=== PATIENT | female | born 1980 | race African-American/Black ===

== ENCOUNTER 2017-03-15 14:58 | Emergency (ER) | payer MEDICARE ==
[2017-03-15] MEDS ORDERED: Ibuprofen 200 MG TAB ONE (17:13)
[2017-03-15] MEDS ORDERED: Acetaminophen 500 MG TAB ONE (17:13)
--- NOTE | 2017-03-15 18:55 | RAD ---
PELVIS ONE VIEW: History: 37-year-old female with history of pelvic injury following a fall. FINDINGS: Compression screws stabilize right femoral fracture with some prominent associated mild sinus ossific ans. No evidence for acute pelvic fracture or hip fracture. IMPRESSION: Old right femoral fracture stabilized with compression screws with prominent mild sinus os ossificans . No acute fracture. POS: [facility]
--- NOTE | 2017-03-15 19:01 | RAD ---
RIGHT FEMUR TWO VIEWS: History: 37-year-old female with history of right hip and thigh injury following a fall off a couch. FINDINGS: Compression screw device stabilizes a right femoral and intratrochanteric fracture with some fairly p rominent sinus ossificans. No evidence for acute periprosthetic fracture, dislocation, or other acute process. IMPRESSION: Compression screw device stabilizing intertrochanteric fracture right hip. Prominent sinus ossificans . No acute fracture. POS: [facility]
== END 2017-03-15 18:58 | disposition home or self-care (01) ==
LOC: ERS 14:58
DX: S70.11XA Contusion of right thigh, initial encounter (principal); E03.9 Hypothyroidism, unspecified; K21.9 Gastro-esophageal reflux disease without esophagitis; I10 Essential (primary) hypertension; G40.909 Epilepsy, unspecified, not intractable, without status epilepticus; Z79.899 Other long term (current) drug therapy; W08.XXXA Fall from other furniture, initial encounter
CPT/HCPCS: 72170

== ENCOUNTER 2018-02-19 21:30 | Emergency (ER) | payer MEDICARE, MEDICAID ==
--- NOTE | 2018-02-19 22:39 | RAD ---
THREE VIEWS OF THE RIGHT FOOT: 02/19/18 COMPARISON: None. HISTORY: Right foot pain after the foot was rolled over by a wheelchair today. FINDINGS: Three views of the right foot shows a fracture of the base of the proximal phalanx of the great toe w hich is intra-articular and involving approximately 20% of the joint space. Mild soft tissue swelling is seen. No dislocation is present. IMPRESSION: Great toe proximal phalanx fracture. POS: [facility]
== END 2018-02-19 23:20 | disposition home or self-care (01) ==
LOC: SCSER 21:30
DX: S92.411A Displaced fracture of proximal phalanx of right great toe, initial encounter for closed fracture (principal); E03.9 Hypothyroidism, unspecified; F43.10 Post-traumatic stress disorder, unspecified; K21.9 Gastro-esophageal reflux disease without esophagitis; F32.9 Major depressive disorder, single episode, unspecified; G80.9 Cerebral palsy, unspecified; Z79.899 Other long term (current) drug therapy; W22.8XXA Striking against or struck by other objects, initial encounter

== ENCOUNTER 2019-02-07 14:44 | Emergency (ER) | payer MEDICARE, MEDICAID ==
[2019-02-07] MEDS ORDERED: Acetaminophen 500 MG TAB ONE (14:58)
--- NOTE | 2019-02-07 15:37 | CT ---
HEAD CT NONCONTRAST: Indication: Fall FINDINGS: No evidence of ventriculomegaly, mass effect, midline shift or acute intracranial hemorrhage. Calvari um is intact. No fluid level of the paranasal sinuses. Multiple dystrophic, dural based calcification s are seen. IMPRESSION: No acute intracranial abnormalities. POS: [facility]
== END 2019-02-07 15:33 | disposition home or self-care (01) ==
LOC: SCSER 14:44
DX: S00.03XA Contusion of scalp, initial encounter (principal); E03.9 Hypothyroidism, unspecified; F32.9 Major depressive disorder, single episode, unspecified; F43.10 Post-traumatic stress disorder, unspecified; Z79.899 Other long term (current) drug therapy; W18.30XA Fall on same level, unspecified, initial encounter
CPT/HCPCS: 70450

== ENCOUNTER 2019-11-17 11:45 | Outpatient (CLI) | payer MEDICARE, MEDICAID ==
--- NOTE | 2019-11-17 12:35 | MRI ---
MR the lumbar spine without contrast: 11/17/2019 History: Pain, abnormal pelvic CT demonstrating disc pathology at L4-5 COMPARISON: None available TECHNIQUE: Multiplanar multisequence MR images were obtained of lumbar spine without IV contrast FINDINGS: On the basis of 5 lumbar type vertebral bodies, conus medullaris terminates at theL1 level. Sagittal STIR imaging demonstrates no focal area of osseous marrow edema. T12-L1:Mild disc space narrowing. No central canal or neural foraminal stenosis. L1-2:Mild disc space narrowing with disc desiccation and mild disc bulge. Mild central canal stenosis . No significant neural foraminal stenosis. L2-3:Intervertebral disc height and signal intensity within normal limits. No significant central can al or neural foraminal stenosis. L3-4:Intervertebral disc height and signal intensity within normal limits. No significant central can al or neural foraminal stenosis. L4-5:There is disc space narrowing with disc desiccation, mild disc bulge, and a superimposed central disc protrusion with minimal inferior migration. Mild/moderate associated central canal stenosis noted with mild left lateral recess stenosis. Mild bilateral facet hypertrophy with no significant ne ural foraminal stenosis. L5-S1:Mild bilateral facet hypertrophy with no significant central canal or neural foraminal stenosis . Image retroperitoneal structures demonstrateno acute findings. IMPRESSION: Lumbar disc disease as detailed above, most prominent at the L4-5 level.
== END 2019-11-17 11:46 | disposition home or self-care (01) ==
LOC: MRI 11:45
PROVIDERS: ATTEND Family Medicine
DX: M51.26 Other intervertebral disc displacement, lumbar region (principal); M51.36 Other intervertebral disc degeneration, lumbar region
CPT/HCPCS: 72148

== ENCOUNTER 2020-01-18 13:10 | Outpatient (CLI) | payer MEDICARE, MEDICAID ==
--- NOTE | 2020-01-18 13:39 | RAD ---
Left foot 3 views HISTORY: Pain. No injury. FINDINGS: Lisfranc joint alignment is anatomic. Plantar arch is maintained. Mild hallux valgus. Osteo phytosis most pronounced at the ankle, with remodeling of the posterior aspect of the talus and distal tibia. Cortical remodeling of the proximal phalanx little toe has the appearance of an old fracture. No acute fracture, dislocation, or aggressive osseous erosions are apparent. IMPRESSION : Prominent arthritic, and possibly old posttraumatic, changes of the ankle. Old injury little toe. Mild osteoarthritic changes of the foot.
== END 2020-01-18 13:11 | disposition home or self-care (01) ==
LOC: SCSRAD 13:10
PROVIDERS: ATTEND Family Medicine
DX: M79.672 Pain in left foot (principal); M19.072 Primary osteoarthritis, left ankle and foot